=== PATIENT | female | born 1985 | race Caucasian/White ===

== ENCOUNTER → 2024-01-20 08:51 | Outpatient (REF) | payer OTHER, SELFPAY | LOC: HWRAD 08:51 | PROVIDERS: ATTENDING PHYSICIAN Physician Assistant Medical | DX: R14.0 Abdominal distension (gaseous) (principal) | CPT/HCPCS: 76700; 76830; 76856 ==

== ENCOUNTER → 2024-04-16 10:58 | Outpatient (REF) | payer OTHER, SELFPAY | LOC: WDC 10:58 | PROVIDERS: ATTENDING PHYSICIAN Obstetrics & Gynecology; FAMILY PHYSICIAN Physician Assistant Medical | DX: Z12.31 Encounter for screening mammogram for malignant neoplasm of breast (principal) | CPT/HCPCS: 77063; 77067 ==

== ENCOUNTER → 2024-06-24 06:20 | Day surgery (SDC) | payer OTHER, SELFPAY | LOC: GI 06:20 | PROVIDERS: ATTENDING PHYSICIAN Internal Medicine Gastroenterology | DX: R19.4 Change in bowel habit (principal); K64.8 Other hemorrhoids; K64.4 Residual hemorrhoidal skin tags | CPT/HCPCS: 45380; 88305 ==

== ENCOUNTER → 2025-02-16 08:11 | Outpatient (REF) | payer OTHER, SELFPAY | LOC: HWRAD 08:11 | PROVIDERS: ATTENDING PHYSICIAN Student in an Organized Health Care Education/Training Program; FAMILY PHYSICIAN Physician Assistant Medical | DX: R10.2 Pelvic and perineal pain (principal) | CPT/HCPCS: 76830; 76856 ==

== ENCOUNTER → 2025-04-20 07:39 | Outpatient (REF) | payer OTHER, SELFPAY | LOC: WDC 07:39 | PROVIDERS: ATTENDING PHYSICIAN Student in an Organized Health Care Education/Training Program | DX: Z12.31 Encounter for screening mammogram for malignant neoplasm of breast (principal) | CPT/HCPCS: 77063; 77067 ==

== ENCOUNTER → 2025-09-26 14:34 | Outpatient (REF) | payer OTHER, SELFPAY | LOC: RAD 14:34 | PROVIDERS: ATTENDING PHYSICIAN Physician Assistant Medical | DX: M79.671 Pain in right foot (principal) | CPT/HCPCS: 73630 ==